=== PATIENT | male | born 1990 | race Two or more races ===

== ENCOUNTER 2016-10-06 12:54 | Emergency (ER) | payer OTHER ==
[~2016-10-06] VITALS: Ht 76.2 cm; Wt 68.0 kg
[2016-10-06 13:54] LABS: BASOPHILS % (AUTO) 0.9 % (0.0-2.0); EOSINOPHILS % (AUTO) 0.7 % (0.0-3.0); LYMPHOCYTES % (AUTO) 22.2 % (20.0-45.0); MEAN CORPUSCULAR HEMOGLOBIN 30.6 PG (27.0-31.0); MEAN CORPUSCULAR HGB CONC 32.5 G/DL (32.0-36.0); MEAN CORPUSCULAR VOLUME 94 FL (80-99); MEAN PLATELET VOLUME 5.7 FL (6.5-10.1); MONOCYTES % (AUTO) 6.7 % (1.0-10.0); NEUTROPHILS % (AUTO) 69.5 % (45.0-75.0); PLATELET COUNT 307 K/UL (150-450); RED BLOOD COUNT 5.08 M/UL (4.70-6.10); RED CELL DISTRIBUTION WIDTH 12.5 % (11.6-14.8); WHITE BLOOD COUNT 10.8 K/UL (4.8-10.8)
[2016-10-06 14:15] LABS: ACETAMINOPHEN < 10 ug/mL (10-30); ALANINE AMINOTRANSFERASE 57 U/L (3-41); ALBUMIN/GLOBULIN RATIO 1.4 (1.0-2.7); ALCOHOL 441 mg/dL; ANION GAP 18 (5-15); ASPARTATE AMINO TRANSFERASE 51 U/L (5-40); CARBON DIOXIDE 26 mEQ/L (20-30); CHLORIDE 99 mEQ/L (98-107); CREATININE 0.9 mg/dL (0.7-1.2); GLOMERULAR FILTRATION RATE > 60 mL/min (>60); HEMOLYSIS 8; SODIUM 143 mEQ/L (135-145); TOTAL PROTEIN 7.8 g/dL (6.6-8.7)
[2016-10-06] MEDS ORDERED: Bacitracin Oint UD TOPIC ONE (14:15)
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
[2016-10-06] MEDS ORDERED: Thiamine HCl 100 MG in D5W 55 ML IVPB SCH (14:30)
[2016-10-06] MEDS ORDERED: Thiamine HCl 100mg/ml Inj ONE (14:42)
[2016-10-06 15:45] VITALS: BP 108/72
[2016-10-06] MEDS ORDERED: TERBINAFINE15 GM TP (19:05)
[2016-10-06 19:15] VITALS: BP 156/99
--- NOTE | 2016-10-08 10:52 | Diagnostic Imaging Report ---
\H\CT Brain without Intravenous Contrast INDICATION: \N\Altered mental status.\H\ COMPARISON: \N\None\H\ TECHNIQUE: Serial axial images were obtained from the the skull base through the vertex without intravenous contrast. Coronal reformats were obtained. Dose Estimate: Total DLP \N\1365\H\ mGycm CTDIvol \N\70\H\ mGy FINDINGS: The sorto white matter differentiation appears normal. There is no evidence of acute intracranial hemorrhage or territorial infarct. The cortical sulci, ventricles and extra-axial CSF spaces are normal in size for patient's age. There is no space occupying lesion, mass effect or midline shift. The visualized paranasal sinuses and mastoid air cells are clear. The osseous structures are unremarkable. The partially imaged left globe appears hyperdense with an intervening air pocket, nonspecific. Please correlate with history and physical exam findings. \N\\H\IMPRESSION: 1. No acute intracranial hemorrhage, midline shift or mass effect. 2. Hyperdense appearance of the partially imaged left globe with an intervening air pocket. Please correlate with history and physical exam findings. \N\
== END 2016-10-06 19:16 | disposition home or self-care (01) ==
LOC: EDBD 12:54 → EMR 14:15
DX: F10.129 Alcohol abuse with intoxication, unspecified (principal); F15.10 Other stimulant abuse, uncomplicated; R21 Rash and other nonspecific skin eruption; R41.82 Altered mental status, unspecified
CPT/HCPCS: 36415; 70450; 80053; 80300; 80329; 85025; 96360; 96361

== ENCOUNTER 2017-04-05 01:39 | Observation (INO) | payer OTHER ==
[2017-04-05] VITALS (16 sets, daily range): BP systolic 113–144; BP diastolic 62–91
[~2017-04-05] VITALS: Ht 175.3 cm; Wt 72.6 kg
[~2017-04-05 01:39] MED LIST: TERBINAFINE15 GM TP
[2017-04-05] MEDS ORDERED: NKM (01:45)
[2017-04-05] MEDS ORDERED: Norco 5mg/325mg tab ORAL ONE (02:15)
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
[2017-04-05] MEDS ORDERED: PERCOCET 5-3251 EACH ORAL (03:55)
[2017-04-05] MEDS ORDERED: ceFAZolin 2gm/50ml Premix 50 ML IVPB STA (04:05)
[2017-04-05 04:24] LABS: BASOPHILS % (AUTO) 0.7 % (0.0-2.0); LYMPHOCYTES % (AUTO) 8.1 % (20.0-45.0); MEAN CORPUSCULAR HEMOGLOBIN 31.4 PG (27.0-31.0); MEAN CORPUSCULAR HGB CONC 32.9 G/DL (32.0-36.0); MEAN CORPUSCULAR VOLUME 96 FL (80-99); MEAN PLATELET VOLUME 5.5 FL (6.5-10.1); MONOCYTES % (AUTO) 7.7 % (1.0-10.0); NEUTROPHILS % (AUTO) 83.6 % (45.0-75.0); PLATELET COUNT 325 K/UL (150-450); RED BLOOD COUNT 4.63 M/UL (4.70-6.10); RED CELL DISTRIBUTION WIDTH 11.8 % (11.6-14.8); WHITE BLOOD COUNT 15.2 K/UL (4.8-10.8)
[2017-04-05 04:41] LABS: ALANINE AMINOTRANSFERASE 100 U/L (3-41); ALBUMIN/GLOBULIN RATIO 1.3 (1.0-2.7); ANION GAP 18 (5-15); ASPARTATE AMINO TRANSFERASE 82 U/L (5-40); CALCIUM 9.1 mg/dL (8.6-10.2); CARBON DIOXIDE 22 mEQ/L (20-30); CHLORIDE 103 mEQ/L (98-107); GLOMERULAR FILTRATION RATE > 60 mL/min (>60); HEMOLYSIS 1; SODIUM 143 mEQ/L (135-145); TOTAL PROTEIN 7.6 g/dL (6.6-8.7)
[2017-04-05] MEDS ORDERED: LR 1000ml ONE (08:00)
[2017-04-05] MEDS ORDERED: Midazolam 2mg/2ml Inj ONE (08:00)
[2017-04-05] MEDS ORDERED: Lidocaine 1% MPF 10mg/ml 5ml ONE (08:00)
[2017-04-05] MEDS ORDERED: NS Irrig 1000ml ONE (08:00)
[2017-04-05] MEDS ORDERED: HYDROmorphone 1mg/ml Carpuject ONE (08:00)
[2017-04-05] MEDS ORDERED: Metoclopramide 10mg/2ml Inj ONE (08:00)
[2017-04-05] MEDS ORDERED: Ketorolac 30mg Inj ONE (08:00)
[2017-04-05] MEDS ORDERED: Sterile Water Irrig 1000ml IRRIG ONE (08:00)
[2017-04-05] MEDS ORDERED: fentaNYL 100 mcg/2 mL IV ONE (08:00)
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
--- NOTE | 2017-04-05 10:30 | Diagnostic Imaging Report ---
Indication: Pain 3 views of the left knee were obtained. Findings: No acute fracture, malalignment, or joint effusion are identified. Joint space is relatively well-maintained. Bone mineralization is within normal limits for age. Impression: Negative exam
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
--- NOTE | 2017-04-05 10:48 | Diagnostic Imaging Report ---
Indication: Pain Findings: 2 views of the left humerus were obtained. Acute displaced intra-articular fracture of the olecranon demonstrated with soft tissue air and a moderate joint hemarthrosis. The humerus is grossly intact. Impression: No fracture of the humerus identified. Acute olecranon fracture
[2017-04-05] MEDS ORDERED: Zolpidem 5mg tab ORAL PRN (11:00)
[2017-04-05] MEDS ORDERED: LORazepam Inj 2mg/ml 1ml IV PRN (11:00)
[2017-04-05] MEDS ORDERED: Miralax 17gm pkt ORAL PRN (11:00)
[2017-04-05] MEDS ORDERED: Mylanta II UD 30ml ORAL PRN (11:00)
[2017-04-05] MEDS ORDERED: Morphine Sulfate 2mg/ml Inj IVP PRN (11:00)
[2017-04-05] MEDS ORDERED: Morphine Sulfate 4mg/ml Inj IVP PRN (11:00)
[2017-04-05] MEDS ORDERED: D5 1/2NS 1,000 ML IV SCH ×3 (11:30→17:30)
--- NOTE | 2017-04-05 13:23 | Pre-Procedure Note/Attestation ---
Pre-Procedure Note/Attestation Complete Prior to Procedure Planned Procedure: left Procedure Narrative: left elbow i&d and ORIF Indications for Procedure Pre-Operative Diagnosis: Left elbow open fracture Attestation I attest that I discussed the nature of the procedure; its benefits; risks and complications; and alternatives (and the risks and benefits of such alternatives ), prior to the procedure, with the patient (or the patient's legal customer contact representative). I attest that, if there was a reasonable possibility of needing a blood transfusion, the patient (or the patient's legal customer contact representative) was given the [facility] standardized written summary, pursuant to the Robin Stacy Blood Safety Act ([place] Health and Safety Code # 1645, as amended). I attest that I re-evaluated the patient just prior to the surgery and that there has been no change in the patient's H&P, except as documented below: NONE DARREN GONZALEZ Apr 05, 2017 13:23
[2017-04-05] MEDS ORDERED: Bacitracin 50000 Units Vial ONE (13:27)
[2017-04-05] MEDS ORDERED: Bupivacaine w/Epi 0.5% 30ml Vial INJ ONE (13:27)
[2017-04-05] MEDS ORDERED: Propofol 10mg/ml 20ml IV ONE (13:39)
[2017-04-05] MEDS ORDERED: HYDROmorphone 1mg/ml Carpuject SUBQ PRN (13:45)
[2017-04-05] MEDS ORDERED: Hydromorphone 0.5mg/0.5ml inj SUBQ PRN (13:45)
[2017-04-05] MEDS ORDERED: Norco 5mg/325mg tab ORAL PRN (13:45)
[2017-04-05] MEDS ORDERED: ceFAZolin sod 1 GM in D5W 55 ML IVPB SCH (14:00)
[2017-04-05] MEDS ORDERED: Metoclopramide 10mg/2ml Inj IVP PRN (14:30)
[2017-04-05] MEDS ORDERED: Hydromorphone 0.5mg/0.5ml inj IVP PRN (14:30)
[2017-04-05] MEDS ORDERED: Meperidine 25mg/0.5ml Inj (FOR RIGORS ONLY) IV PRN (14:30)
[2017-04-05] MEDS ORDERED: fentaNYL 100 mcg/2 mL IV PRN (14:30)
[2017-04-05] MEDS ORDERED: DiphenhydrAMINE 50mg/ml Inj IVP PRN (14:30)
--- NOTE | 2017-04-05 14:47 | Anethesia Preoperative Eval ---
Anesthesia Pre-op PMH/ROS General Date of Evaluation: Apr 05, 2017 Time of Evaluation: 14:46 Anesthesiologist: mitchell ASA Score: ASA 2 Mallampati Score Class I : Soft palate, uvula, fauces, pillars visible Class II: Soft palate, uvula, fauces visible Class III: Soft palate, base of uvula visible Class IV: Only hard plate visible Mallampati Classification: Class II Surgeon: zaynab Diagnosis: Olecranon process fx Surgical Procedure: ORIF Anesthesia History: none Social History: smoking Family History: no anesthesia problems Allergies: Coded Allergies: No Known Allergies (Unverified , 10/06/16) Medications: see eMAR Past Medical History Cardiovascular: Denies: CAD, HTN, MS, arrhythmia, other, valve dz Pulmonary: Denies: COPD, EMILIE, asthma, other Gastrointestinal/Genitourinary: Denies: CRI, ESRD, GERD, other Neurologic/Psychiatric: Denies: CVA, TIA, dementia, depression/anxiety, other Endocrine: Denies: DM, hypothyroidism, other, steroids HEENT: Denies: VIEJAS (L), VIEJAS (R), cataract (L), cataract (R), glaucoma, other Hematology/Immune: Denies: DVT, anemia, bleeding disorder, other Musculoskeletal/Integumentary: Denies: DDD, DJD, OA, RA, edema, other Other: other - left eye blind PSxH Narrative: eye surgery, collar bone surgery Anesthesia Pre-op Phys. Exam Physician Exam Last Vital Signs Date Time Temp Pulse Resp B/P Pulse Ox O2 Delivery O2 Flow Rate FiO2 04/05/17 12:45 19 133/74 99 Room Air 04/05/17 12:05 98.6 04/05/17 10:55 74 Constitutional: NAD Neurologic: CN 2-12 intact Cardiovascular: RRR Respiratory: CTA Gastrointestinal: S/NT/ND Airway Exam Mallampati Score: Class II MO: full ROM: full Dentures: no lower, no upper Anesthesia Pre-op A/P Labs Hematology Test 04/05/17 04:15 White Blood Count 15.2 K/UL (4.8-10.8) H Red Blood Count 4.63 M/UL (4.70-6.10) L Hemoglobin 14.5 G/DL (14.2-18.0) Hematocrit 44.2 % (42.0-52.0) Mean Corpuscular Volume 96 FL (80-99) Mean Corpuscular Hemoglobin 31.4 PG (27.0-31.0) H Mean Corpuscular Hemoglobin Concent 32.9 G/DL (32.0-36.0) Red Cell Distribution Width 11.8 % (11.6-14.8) Platelet Count 325 K/UL (150-450) Mean Platelet Volume 5.5 FL (6.5-10.1) L Neutrophils (%) (Auto) 83.6 % (45.0-75.0) H Lymphocytes (%) (Auto) 8.1 % (20.0-45.0) L Monocytes (%) (Auto) 7.7 % (1.0-10.0) Eosinophils (%) (Auto) 0.0 % (0.0-3.0) Basophils (%) (Auto) 0.7 % (0.0-2.0) Coagulation Test 04/05/17 04:15 Prothrombin Time 10.0 SEC (9.30-11.50) Prothromb Time International Ratio 1.0 (0.9-1.1) Chemistry Test 04/05/17 04:15 Sodium Level 143 mEQ/L (135-145) Potassium Level 4.0 mEQ/L (3.4-4.9) Chloride Level 103 mEQ/L (98-107) Carbon Dioxide Level 22 mEQ/L (20-30) Anion Gap 18 (5-15) H Blood Urea Nitrogen 21 mg/dL (7-23) Creatinine 1.0 mg/dL (0.7-1.2) Estimat Glomerular Filtration Rate > 60 mL/min (>60) Glucose Level 111 mg/dL (74-106) H Calcium Level 9.1 mg/dL (8.6-10.2) Total Bilirubin 0.8 mg/dL (0.0-1.2) Aspartate Amino Transf (AST/SGOT) 82 U/L (5-40) H Alanine Aminotransferase (ALT/SGPT) 100 U/L (3-41) H Alkaline Phosphatase 94 U/L (40-129) Total Creatine Kinase 395 U/L (38-174) H Total Protein 7.6 g/dL (6.6-8.7) Albumin 4.3 g/dL (3.5-5.2) Globulin 3.3 g/dL Albumin/Globulin Ratio 1.3 (1.0-2.7) Studies Pre-op Studies: EKG - sr Risk Assessment & Plan Plan: general Status Change Before Surgery: No Pre-Antibiotics Drug: ancef Given Within 1 Hr of Incision: Yes MADELEINE CEE CRNA Apr 05, 2017 14:47
--- NOTE | 2017-04-05 14:59 | Brief Operative Note ---
Immediate Post Operative Note Operative Note Chief Complaint: left elbow pain Pre-op Diagnosis: left elbow fracture Procedure: left elbow i&d with ORIF Post-op Diagnosis: same as pre-op Findings: consistent w/pre-op dx studies Surgeon: md alina Tailor [employer]: benedicto gallardo Anesthesiologist: md chyna Anesthesia: general Specimen: none Complications: none Condition: stable Estimated Blood Loss: minimal Drains: none Implant(s) used?: Yes - chadwick plates and screws HIMANSHU GALLARDO Apr 05, 2017 14:59
--- NOTE | 2017-04-05 15:17 | Immediate Post-Op Evaluation ---
Immediate Post-Op Evalulation Immediate Post-Op Evalulation Procedure: ORIF left elbow Date of Evaluation: Apr 05, 2017 Time of Evaluation: 15:10 Blood Pressure Systolic: 137 Blood Pressure Diastolic: 77 Pulse Rate: 91 Respiratory Rate: 14 O2 Sat by Pulse Oximetry: 100 Temperature (Fahrenheit): 98.9 Nausea: No Vomiting: No Complications none Patient Status: awake, reacts, patent Drug: ancef Given Within 1 Hr of Incision: Yes Time Given: 13:30 MADELEINE CEE CRNA Apr 05, 2017 15:17
--- NOTE | 2017-04-05 15:19 | Diagnostic Imaging Report ---
Indication: Acute olecranon fracture Findings: Fluoroscopic views of the left elbow were obtained. Plate fixation of a olecranon fracture noted on 3 fluoroscopically obtained images. Impression: Intraoperative imaging
--- NOTE | 2017-04-05 15:22 | 48 Hour Post Anesthesia Eval ---
Post Anesthesia Evaluation Procedure: ORIF left elbow Date of Evaluation: Apr 05, 2017 Time of Evaluation: 15:21 Blood Pressure Systolic: 129 0: 72 Pulse Rate: 90 Respiratory Rate: 14 O2 Sat by Pulse Oximetry: 99 Airway: patent Nausea: No Vomiting: No Hydration Status: adequate Cardiopulmonary Status: stable Mental Status/LOC: patient returned to baseline Post-Anesthesia Complications: none Follow-up care needed: N/A MADELEINE CEE CRNA Apr 05, 2017 15:22
[2017-04-05] MEDS: Pericolace tab ORAL SCH (17:40)
[2017-04-05] MEDS: oxyCONTIN 20mg tab ORAL SCH (21:06)
[2017-04-05] MEDS: Vancomycin 1gm in Dextrose 275ml IVPB SCH (21:06)
[2017-04-05] MEDS: Heparin 5000 units/ml inj SUBQ SCH (21:07)
[2017-04-05] MEDS: ceFAZolin sod 1 GM in D5W 55 ML IV SCH (23:15)
[2017-04-06] VITALS: BP 118/74
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
[2017-04-06] MEDS: Vancomycin 1gm in Dextrose 275ml IVPB SCH (02:40)
[2017-04-06 04:00] VITALS: BP 109/70
[2017-04-06] MEDS: ceFAZolin sod 1 GM in D5W 55 ML IV SCH (06:01)
[2017-04-06 07:20] LABS: BASOPHILS % (AUTO) 0.9 % (0.0-2.0); EOSINOPHILS % (AUTO) 1.3 % (0.0-3.0); LYMPHOCYTES % (AUTO) 23.5 % (20.0-45.0); MEAN CORPUSCULAR HGB CONC 34.1 G/DL (32.0-36.0); MEAN CORPUSCULAR VOLUME 97 FL (80-99); MEAN PLATELET VOLUME 5.6 FL (6.5-10.1); MONOCYTES % (AUTO) 7.1 % (1.0-10.0); NEUTROPHILS % (AUTO) 67.1 % (45.0-75.0); PLATELET COUNT 248 K/UL (150-450); RED BLOOD COUNT 3.62 M/UL (4.70-6.10); RED CELL DISTRIBUTION WIDTH 11.2 % (11.6-14.8); WHITE BLOOD COUNT 9.2 K/UL (4.8-10.8)
[2017-04-06 07:36] LABS: ALANINE AMINOTRANSFERASE 58 U/L (3-41); ALBUMIN/GLOBULIN RATIO 1.5 (1.0-2.7); ANION GAP 11 (5-15); ASPARTATE AMINO TRANSFERASE 33 U/L (5-40); CALCIUM 8.1 mg/dL (8.6-10.2); CARBON DIOXIDE 25 mEQ/L (20-30); CHLORIDE 99 mEQ/L (98-107); CREATININE 0.9 mg/dL (0.7-1.2); GLOMERULAR FILTRATION RATE > 60 mL/min (>60); HEMOLYSIS 5; POTASSIUM 3.6 mEQ/L (3.4-4.9); SODIUM 135 mEQ/L (135-145); TOTAL PROTEIN 5.8 g/dL (6.6-8.7)
[2017-04-06 08:00] VITALS: BP 128/81
[2017-04-06] MEDS: oxyCONTIN 20mg tab ORAL SCH (08:02)
[2017-04-06] MEDS: Pericolace tab ORAL SCH (08:02)
[2017-04-06] MEDS: Heparin 5000 units/ml inj SUBQ SCH (08:03)
[2017-04-06] MEDS ORDERED: OXYCONTIN20 MG ORAL (10:21)
[2017-04-06] MEDS ORDERED: PERCOCET 5-3251 EACH ORAL (10:22)
[2017-04-06] MEDS ORDERED: CEPHALEXIN500 MG ORAL (10:24)
[2017-04-06] MEDS ORDERED: Tubing IV Secondary IV ONE (10:59)
[2017-04-06] MEDS ORDERED: fentaNYL 250mcg/5ml ONE (10:59)
--- NOTE | 2017-04-07 17:55 | Cardiology Report ---
APPROVED REPORT EKG Measurement Heart [id number] Normal sinus rhythm Normal ECG
--- NOTE | 2017-04-08 08:26 | Diagnostic Imaging Report ---
Indication: Postop olecranon ORIF Findings: 3 views of the left elbow were obtained. Plate fixation of olecranon fracture which appears to have been reduced. Overlying skin elmer noted. Impression: Status post reduction of olecranon fracture.
--- NOTE | 2017-04-08 08:28 | Diagnostic Imaging Report ---
Indication: Pain Findings: 2 views of the left forearm were obtained. There is an acute intra-articular fracture of the olecranon with overlying soft tissue swelling and soft tissue air. The fracture is comminuted. Impression: Acute, open comminuted fracture of the olecranon
== END 2017-04-06 11:00 | disposition home or self-care (01) ==
LOC: EDBD 01:39 → EMR 01:56 → EDBEDREQ 10:57 → EDBEDREQSVC 11:09 → EDBEDREQ 11:09 → SUR 12:30 → INTOOBSV 14:10 → 3E 14:10
DX: S52.022B Displaced fracture of olecranon process without intraarticular extension of left ulna, initial encounter for open fracture type I or II (principal); S61.215A Laceration without foreign body of left ring finger without damage to nail, initial encounter; S61.217A Laceration without foreign body of left little finger without damage to nail, initial encounter; D72.829 Elevated white blood cell count, unspecified; Y00.XXXA Assault by blunt object, initial encounter; Y92.89 Other specified places as the place of occurrence of the external cause; Y99.9 Unspecified external cause status; F17.200 Nicotine dependence, unspecified, uncomplicated; H54.42 Blindness, left eye, normal vision right eye
CPT/HCPCS: 11010; 12002; 24685; 36415; 73060; 73070; 73090; 73562; 76000; 80053; 82550; 84443; 85025; 85610; 86850; 86900; 86901; 87070; 87075; 87205; 93005; 96360; 96367; 96372; 99285; C1713; G0378; J0690; J1170; J1644; J1885; J2250; J2270; J2405; J2704; J2765; J3010; J3370; J7120; Z7502; Z7512; 94003; 94150; 96365; 96374; C9399

== ENCOUNTER 2017-06-14 21:02 | Emergency (ER) | payer OTHER ==
[~2017-06-14] VITALS: Ht 175.3 cm; Wt 77.1 kg
[~2017-06-14 21:02] MED LIST changes: +CEPHALEXIN500 MG ORAL; +NKM; +OXYCONTIN20 MG ORAL; +PERCOCET 5-3251 EACH ORAL
[2017-06-14] MEDS ORDERED: NKM (21:08)
--- NOTE | 2017-06-14 21:26 | Emergency Room Report ---
History of Present Illness General Chief Complaint: Abdominal Pain Source: Patient Present Illness HPI Patient presents with epigastric pain. Going on for several days. He vomits every day for several weeks. Sometimes a little bit of blood in the vomit. His stools have been dark but not tarry. There's been no blood in stool. He drinks alcohol daily at least a fifth of vodka. This been going on for 3 years without 2 weeks sobriety. He feels shaky when he stops drinking. Denies any seizures, ulcers, DTs. He's not suicidal. Pain in stomach reported 05/05, constant, pressure and burning, not radiate, epigastric. No medications taken. He states he is under stress at this time. No fevers, chills, chest pain, palpitations, diarrhea, dysuria, shortness of breath, depression, visual changes aside from chronic eye problem, headache. Allergies: Coded Allergies: No Known Allergies (Unverified , 10/06/16) Patient History Past Medical History: see triage record Social History: Reports: alcohol use, drug use - see tox Social History Narrative and unemployed Reviewed Nursing Documentation: PMH: Agreed, PSxH: Agreed Nursing Documentation-PMH Hx Cardiac Problems: Yes Hx Hypertension: Yes Hx Cancer: No Hx Gastrointestinal Problems: No Hx Neurological Problems: No Review of Systems All Other Systems: negative except mentioned in HPI Physical Exam Vital Signs Date Time Temp Pulse Resp B/P (MAP) Pulse Ox O2 Delivery O2 Flow Rate FiO2 06/14/17 21:04 97.9 120 18 167/109 100 Room Air Sp02 EP Interpretation: reviewed, normal General Appearance: well appearing, no apparent distress, GCS 15 Head: normocephalic Eyes: right eye PERRL, left eye other - opacity of cornea ENT: moist mucus membranes Neck: supple Respiratory: lungs clear, normal breath sounds Cardiovascular #1: regular rate, rhythm, no edema Cardiovascular #2: 2+ radial (R) Gastrointestinal: normal inspection, normal bowel sounds, no mass, non- distended, no guarding, no rebound, tenderness - epigastric Musculoskeletal: back normal, gait/station normal, normal range of motion Neurologic: alert, oriented x3, motor strength/tone normal, DTRs symmetric, sensory intact, other - slight tremor Psychiatric: mood/affect normal - slightly anxious Skin: normal inspection, warm/dry Medical Decision Making Diagnostic Impression: Primary Impression: Gastritis Qualified Codes: K29.20 - Alcoholic gastritis without bleeding Additional Impressions: Alcohol abuse Substance abuse ER Course Patient presents with epigastric pain and history of alcohol abuse. Differential includes gastritis, peptic ulcer disease, GERD, esophagitis, as esophageal spasm, cardiac cause amongst others. Evaluation will be with abdominal film and labs. The patient will be treated with IV hydration, Ativan , Pepcid and analgesics. Abdominal film remarkable for enlarged liver and spleen appeared labs significant for normal hemoglobin hematocrit, slight elevated liver function tests. His toxicology screen was positive for amphetamines. Patient is improved after medical treatment. Pain is resolved. We spent quite a bit of time talking about stopping drinking and abusing drugs. His was present. The patient is stable for outpatient observation and treatment. Laboratory Tests Test 06/14/17 21:30 06/14/17 22:20 White Blood Count 13.4 K/UL (4.8-10.8) H Red Blood Count 5.14 M/UL (4.70-6.10) Hemoglobin 15.7 G/DL (14.2-18.0) Hematocrit 49.4 % (42.0-52.0) Mean Corpuscular Volume 96 FL (80-99) Mean Corpuscular Hemoglobin 30.6 PG (27.0-31.0) Mean Corpuscular Hemoglobin Concent 31.9 G/DL (32.0-36.0) L Red Cell Distribution Width 11.6 % (11.6-14.8) Platelet Count 238 K/UL (150-450) Mean Platelet Volume 5.5 FL (6.5-10.1) L Neutrophils (%) (Auto) 81.1 % (45.0-75.0) H Lymphocytes (%) (Auto) 10.7 % (20.0-45.0) L Monocytes (%) (Auto) 7.2 % (1.0-10.0) Eosinophils (%) (Auto) 0.0 % (0.0-3.0) Basophils (%) (Auto) 0.9 % (0.0-2.0) Prothrombin Time 9.6 SEC (9.30-11.50) Prothrombin Time INR 0.9 (0.9-1.1) PTT 23 SEC (23-33) Sodium Level 144 MMOL/L (136-145) Potassium Level 3.6 MMOL/L (3.5-5.1) Chloride Level 100 MMOL/L (98-107) Carbon Dioxide Level 30 MMOL/L (21-32) Anion Gap 14 mmol/L (5-15) Blood Urea Nitrogen 14 mg/dL (7-18) Creatinine 1.1 MG/DL (0.55-1.30) Estimate Glomerular Filtration Rate > 60 mL/min (>60) Glucose Level 124 MG/DL (74-106) H Calcium Level 10.8 MG/DL (8.5-10.1) H Total Bilirubin 0.9 MG/DL (0.2-1.0) Aspartate Amino Transferase (AST) 116 U/L (15-37) H Alanine Aminotransferase (ALT) 144 U/L (12-78) H Alkaline Phosphatase 116 U/L (46-116) Total Protein 9.2 G/DL (6.4-8.2) H Albumin 4.7 G/DL (3.4-5.0) Globulin 4.5 g/dL Albumin/Globulin Ratio 1.0 (1.0-2.7) Lipase 232 U/L (73-393) Serum Alcohol < 3 mg/dL Urine Color Brown Urine Appearance Clear Urine pH 9 (4.5-8.0) Urine Specific [place] 1.015 (1.005-1.035) Urine Protein 2+ (NEGATIVE) H Urine Glucose (UA) Negative (NEGATIVE) Urine Ketones 4+ (NEGATIVE) H Urine Occult Blood Negative (NEGATIVE) Urine Nitrite Negative (NEGATIVE) Urine Bilirubin Negative (NEGATIVE) Urine Urobilinogen 8 MG/DL (0.0-1.0) H Urine Leukocyte Esterase 2+ (NEGATIVE) H Urine RBC 0-2 /HPF (0 - 0) H Urine WBC 0-2 /HPF (0 - 0) Urine Squamous Epithelial Cells None /LPF (NONE/OCC) Urine Bacteria Few /HPF (NONE) Urine Mucus Many /LPF (NONE/OCC) H Urine Opiates Screen Positive (NEGATIVE) H Urine Barbiturates Screen Negative (NEGATIVE) Phencyclidine (PCP) Screen Negative (NEGATIVE) Urine Amphetamines Screen Positive (NEGATIVE) H Urine Benzodiazepines Screen Negative (NEGATIVE) Urine Cocaine Screen Negative (NEGATIVE) Urine Marijuana (THC) Screen Negative (NEGATIVE) Other X-Ray Diagnostic Results Other X-Ray Diagnostic Results : X-Ray ordered: abd # of Views/Limited Vs Complete: 1 View Indication: Pain EP Interpretation: Yes Interpretation: nonspecific bowel gas, no sbo, other - Enlarged liver and spleen Impression: Other Electronically Signed by: Electronically signed by Jorge Jiang MD Last Vital Signs Date Time Temp Pulse Resp B/P (MAP) Pulse Ox O2 Delivery O2 Flow Rate FiO2 06/15/17 01:17 99 15 140/105 98 Room Air 06/15/17 01:15 98.0 Status: improved Disposition: HOME, SELF-CARE Condition: Improved Scripts Acetaminophen (Tylenol) 325 Mg Tablet 650 MG ORAL Q6H Y for Prn Pain/Headache/Temp > 101, #20 TAB 0 Refills Prov: Jorge Jiang M.D. 06/15/17 Ondansetron Odt* (ZOFRAN ODT*) 4 Mg Tab.rapdis 4 MG ORAL Q8H Y for Nausea & Vomiting, #8 TAB 1 Refill Prov: Jorge Jiang M.D. 06/15/17 Famotidine (PEPCID) 20 Mg Tablet 20 MG ORAL DAILY, #30 TAB 0 Refills Prov: Jorge Jiang M.D. 06/15/17 Jorge Jiang M.D. Jun 14, 2017 21:26
[2017-06-14] MEDS ORDERED: Famotidine 20 MG/ 2ML VIAL IVP ONE (21:30)
[2017-06-14] MEDS ORDERED: LORazepam Inj 2mg/ml 1ml IV ONE (21:30)
[2017-06-14] MEDS ORDERED: Morphine Sulfate 4mg/ml Inj IVP ONE (21:30)
[2017-06-14] MEDS ORDERED: Tubing IV Cassette IV ONE (21:38)
[2017-06-14 21:54] LABS: BASOPHILS % (AUTO) 0.9 % (0.0-2.0); LYMPHOCYTES % (AUTO) 10.7 % (20.0-45.0); MEAN CORPUSCULAR HEMOGLOBIN 30.6 PG (27.0-31.0); MEAN CORPUSCULAR HGB CONC 31.9 G/DL (32.0-36.0); MEAN CORPUSCULAR VOLUME 96 FL (80-99); MEAN PLATELET VOLUME 5.5 FL (6.5-10.1); MONOCYTES % (AUTO) 7.2 % (1.0-10.0); NEUTROPHILS % (AUTO) 81.1 % (45.0-75.0); PLATELET COUNT 238 K/UL (150-450); RED BLOOD COUNT 5.14 M/UL (4.70-6.10); RED CELL DISTRIBUTION WIDTH 11.6 % (11.6-14.8); WHITE BLOOD COUNT 13.4 K/UL (4.8-10.8)
[2017-06-14 22:05] LABS: INR 0.9 (0.9-1.1); PROTHROMBIN TIME 9.6 SEC (9.30-11.50)
[2017-06-14 22:17] LABS: ALANINE AMINOTRANSFERASE 144 U/L (12-78); ALCOHOL < 3 mg/dL; ANION GAP 14 mmol/L (5-15); ASPARTATE AMINO TRANSFERASE 116 U/L (15-37); CALCIUM 10.8 MG/DL (8.5-10.1); CARBON DIOXIDE 30 MMOL/L (21-32); CHLORIDE 100 MMOL/L (98-107); CREATININE 1.1 MG/DL (0.55-1.30); GLOMERULAR FILTRATION RATE > 60 mL/min (>60); LIPASE 232 U/L (73-393); POTASSIUM 3.6 MMOL/L (3.5-5.1); SODIUM 144 MMOL/L (136-145); TOTAL PROTEIN 9.2 G/DL (6.4-8.2)
[2017-06-14 22:41] LABS: APPEARANCE,URINE CLEAR; KETONES,URINE 4+ (NEGATIVE); LEUKOCYTE ESTERASE ,URINE 2+ (NEGATIVE); NITRITE,URINE NEGATIVE (NEGATIVE); PH,URINE 9 (4.5-8.0); PROTEIN,URINE 2+ (NEGATIVE); UROBILINOGEN,URINE 8 MG/DL (0.0-1.0)
[2017-06-14 22:46] VITALS: BP 144/95
[2017-06-14 22:49] LABS: BACTERIA,URINE FEW /HPF; RBC,URINE 0-2 /HPF (0 - 0); WBC,URINE 0-2 /HPF (0 - 0)
[2017-06-14 22:50] LABS: MUCUS,URINE MANY /LPF (NONE/OCC)
[2017-06-15 00:13] VITALS: BP 149/92
[2017-06-15] MEDS ORDERED: TYLENOL325 MG ORAL (01:08)
[2017-06-15] MEDS ORDERED: PEPCID20 MG ORAL (01:08)
[2017-06-15] MEDS ORDERED: ZOFRAN ODT4 MG ORAL (01:08)
[2017-06-15 01:17] VITALS: BP 140/105
--- NOTE | 2017-06-15 10:53 | Diagnostic Imaging Report ---
Indication: Abdominal pain Comparison: None Single view of the abdomen obtained Findings: Bowel gas pattern is nonspecific. No mass, ectopic calcifications, or abnormal gas collections are identified. The bones are unremarkable. Impression: No acute findings
== END 2017-06-15 01:15 | disposition home or self-care (01) ==
LOC: EMR 21:26
DX: K29.70 Gastritis, unspecified, without bleeding (principal); F10.10 Alcohol abuse, uncomplicated; I10 Essential (primary) hypertension
CPT/HCPCS: 36415; 74000; 80053; 80307; 80329; 81003; 83690; 85025; 85610; 85730; 96361; 96374; 96375; 99284; J2270; J2405; S0028